=== PATIENT | female | born 2000 ===

== ENCOUNTER → 2025-01-20 23:59 | Outpatient (BNV) | payer OTHER, SELFPAY ==
--- NOTE | 2025-01-21 09:48 | MHC.OFFVIS ---
Intake Visit Reasons: follow up HPI Comments Details: mom is here initally w/ baby to be seen but she and I had a long visit given a significant history of migraine seen by clinic supervisor in this building not in this emr - pt was sent to er and was treated there. so we discussed her migraines and did orientation to get her registered as our patient mom is here initally w/ baby to be seen but she and I had a long visit given a significant history of migraine seen by clinic supervisor in this building not in this emr - pt was sent to er and was treated there.? so we discussed her migraines and did orientation to get her registered as our patient. ? PHQ 9 done 12/19/24 = 8 ? 01/09/25 - 6 CRAFFT negative all 0 She currently is living at [facility].? Her three other children are living in foster care bc she was unsheltered but she had a list of tasks to accomplish as well and she has done this and the children will be coming home this month.? She feels ok about the foster care situation - feels they are in a good home and were treated well and are flourishing better than they would have with her at the time.? She is happy they are coming home and they will all live at [facility] w/ her until she has found housing.? She feel also good about the retirement feels that it is really supportive and she likes all the class offerings. Vitals 98.6,o2 99% bp 128/70 She is congested but smiling and easy in manner. ? No allergies known PCP - just got connected w/ [facility] she has an appointment w/- the adult practice at same location [facility] ([facility] I think not [facility]).appt is in spetember date unknown - she has it written down.? She is seen at for ob/gyne care.. PMH: migraines - has never seen neurologist but would like to- she has 1 kidney since , and history of HTN and low iron. she watns to see a specialist for her 1 kidney - we discussed - she needs pcp primarily then it can be decisded if specialist necessary - may not be - she doesn't wear a bracelet for this condition - will discuss w/ pcp MEDS: nifidepine ER 30 mg q d, Metocloramide 10mg (reglan) - directions unclear - seems if she has migraine. Diphenydramine 25, drospirenon 4mg she will take pic of meds so can be more exact but this is the best she can do today Mood: I'm good phq done 6-8 she says momndays are hard bc she has to send the kids back home and this always is hard - and hard for them too - even though they are in good care. she says depression has not been her struggle really - not even in the past. she feels more motivated these days though - so feeling mood is improved. she says anxiety is more her issue - overthinking and worrying about things. she just got assigned a therapist w/ our help through counselor here. looking forward to that. she doesn't do etoh, drugs nor cigarettes - never did partner is male and alive and well - states their relationship is ok he is 25, he is the father of all children. it is unclear why he is doesnot have custody- her children are all healthy - both her parents were drug addicts and she was raised by her father's mother - who was her person - shes the best woman they were very close - she 2020 of ? cause had diabetes and high bp. she lives at [facility] and likes it feels safe and well taken care of .she live s w/ her one son and awaiting the other three children [facility] Medical History (Updated 01/21/25 @ 10:34 by REYNALDO Donaldson) Oral contraceptive use Anxiety Congenital absence of one kidney HTN (hypertension) Sheltered homelessness Migraine Family History (Updated 01/21/25 @ 10:42 by REYNALDO Donaldson) Mother Drug addiction Father Drug addiction Paternal Grandmother Diabetes HTN (hypertension) Son No problems noted. Son No problems noted. Son No problems noted. Daughter No problems noted. Female Reproductive History Menstrual control method: pills Total pregnancies: 4 Full term: 4 Number of Living Children: 4 Review of Systems Const Details: Counseling visit: All systems reviewed & are unremarkable except as noted in HPI and below Reports as per HPI Resp Reports as per HPI GI Reports as per HPI Musc Reports as per HPI Neuro Reports as per HPI Psych Reports as per HPI Physical Exam Const General: cooperative, healthy appearing and no acute distress Nutritional Appearance: well nourished Orientation/consciousness: oriented to person Limitations: no limitations HEENT Other: wnl Eyes Other: wnl Chest Other: easy breathing Resp Effort & Inspection: able to speak in complete sentences Skin Other: normal in appearance Neuro General: oriented to person Psych Other: see HPI Mental Status: mental status grossly normal Speech and movement: Clear speech present Attitude: cooperative Thought process: Normal thought process present Assessment & Plan Assessment & Plan (1) Anxiety disorder, unspecified: Code(s): F41.9 - Anxiety disorder, unspecified Category: Medical (2) control counseling: Code(s): Z30.09 - Encounter for other general counseling and advice on contraception Category: Medical (3) History of migraine headaches: Code(s): Z86.69 - Personal history of other diseases of the nervous system and sense organs Category: Medical (4) Sheltered homelessness: Code(s): Z59.01 - Sheltered homelessness Category: Medical (5) Counseling and coordination of care: Code(s): Z71.89 - Other specified counseling Category: Medical Plan initail counseling done w/ teachign and support for control brandon as related to migraines (though progestin only) and getting pcp, she is in a vulnerable situation - homeless retirement and 3 children returning from [facility] custody this month - we will follow her closely in her education and support this area as needed. she seems to have a lot of strengths - counselor on site connected her w therapist - and will continue to monitor her Coding Level of Care Code New Pt Level 5 (63825) Diagnoses Anxiety disorder, unspecified F41.9 control counseling Z30. History of migraine headaches Z86.69 Sheltered homelessness Z59.01 Counseling and coordination of care Z71.89 Additional Codes PHQ-9 - 09535 - PHQ-9 Billing: Yes ([id number]) RAMONFFT Assessment Charge - Crafft: HALEY [id number] ([id number]) Time Spent (min) 60 Comment extensive counseling and support - coordination of team PHQ-9 Over the last 2 weeks, how often have you been bothered by any of the following problems? 1. Little interest or pleasure in doing things: not at all 2. Feeling down, depressed, or hopeless: not at all 3. Trouble falling or staying asleep, or sleeping too much: not at all 4. Feeling tired or having little energy: not at all 5. Poor appetite or overeating: nearly every day 6. Feeling bad about yourself - or that you are a failure or have let yourself or your family down: not at all 7. Trouble concentrating on things, such as reading the newspaper or watching television: nearly every day 8. Moving or speaking so slowly that other people could have noticed. Or the opposite - being so fidgety or restless that you have been moving around a lot more than usual: not at all 9. Thoughts that you would be better off or of hurting yourself in some way: not at all Total score: 6 Depression Screening Interpretation: Negative Depression Screening Done: Yes [id number] - PHQ-9 Billing: Yes Source: Developed by Drs. Jim Ellis, Jennie La, Omari Guillen and colleagues, with an educational latoya from [employer]. CRAFFT Screening Tool PART A: In the PAST 12 MONTHS, did you: Drink any alcohol (more than few sips)? (Do not count sips of alcohol taken during family or cheondoism events.): No Smoke any marijuana or hashish?: No Use anything else to get high? (includes illegal drugs, over the counter/prescription drugs, or things that you sniff/cruz?): No CRAFFT Assessment Charge Crafft: HALEY [id number]
== END ==
PROVIDERS: PCP Nurse Practitioner Family; Visit Provider Nurse Practitioner Family
DX: F41.9 Anxiety disorder, unspecified (principal); Z30.09 Encounter for other general counseling and advice on contraception; Z86.69 Personal history of other diseases of the nervous system and sense organs; Z59.01 Sheltered homelessness; Z71.89 Other specified counseling
CPT/HCPCS: 96127; 96160; 99205

== ENCOUNTER → 2025-04-07 10:24 | Outpatient (BNV) | payer OTHER, SELFPAY ==
--- NOTE | 2025-04-07 10:24 | MHC.OFFVIS ---
Intake Visit Reasons: Amb Documentation HPI Comments Details: student coming rto see me because she has a headache - she pierced her tongue last night and it is swollen and giving her a headache. she has only 1 kidney so she wants whichever pain medicaiton is safer for kidneys. we looked this up together and gave her 2 tylenol ex strength PFSH Medical History Oral contraceptive use Anxiety Congenital absence of one kidney HTN (hypertension) Sheltered homelessness Migraine Family History Mother Drug addiction Father Drug addiction Paternal Grandmother Diabetes HTN (hypertension) Son No problems noted. Son No problems noted. Son No problems noted. Daughter No problems noted. Review of Systems Const All systems reviewed & are unremarkable except as noted in HPI and below Reports as per HPI Resp Reports as per HPI GI Reports as per HPI Musc Reports as per HPI Neuro Reports as per HPI Psych Reports as per HPI Physical Exam Const General: cooperative, healthy appearing and no acute distress Nutritional Appearance: well nourished Orientation/consciousness: oriented to person Limitations: no limitations HEENT Other: tongue is swollen and pierced. no drainage noted - she is talking with difficulty -this is within the expected range Eyes Other: wnl Chest Other: easy breathing Resp Effort & Inspection: able to speak in complete sentences Skin Other: normal in appearance Neuro General: oriented to person Psych Other: see HPI Mental Status: mental status grossly normal Speech and movement: Clear speech present Attitude: cooperative Thought process: Normal thought process present Assessment & Plan Assessment & Plan (1) Pierced tongue: Code(s): Z78.9 - Other specified health status Category: Medical (2) Swollen tongue: Code(s): R22.0 - Localized swelling, mass and lump, head Category: Medical (3) Headache: Code(s): R51.9 - Headache, unspecified Category: Medical Plan after self-piercing last night - tongue is swollen- given 2 Extra Strength tylenol and ice Coding Level of Care Code Est Pt Level 3 ([id number]) Diagnoses Pierced tongue Z78.9 Swollen tongue R22.0 Headache R51.9 Time Spent (min) 20 Comment counseling and support
== END ==
PROVIDERS: PCP Nurse Practitioner Family; Visit Provider Nurse Practitioner Family
DX: Z78.9 Other specified health status (principal); R22.0 Localized swelling, mass and lump, head; R51.9 Headache, unspecified
CPT/HCPCS: 99213